=== PATIENT | female | born 1965 | race American Indian/Alaskan Native ===

== ENCOUNTER 2017-02-05 06:21 | Emergency (ER) | payer OTHER ==
[2017-02-05] MEDS ORDERED: Bacitracin 500 Units/gm Oint Foilpak UD TOP STA (07:32)
[2017-02-05] MEDS ORDERED: Bacitracin 500 Units/gm Oint Foilpak UD ONE (07:54)
--- NOTE | 2017-02-05 08:11 | RAD ---
PROCEDURE: Bilateral Knee Radiographs. HISTORY: fall COMPARISON: None. FINDINGS: BONES: Right Knee: No fracture Left Knee: No fracture JOINTS: Right Knee: Trace osteoarthritis. Left knee: Trace osteoarthritis. SOFT TISSUES: Right Knee: Normal. Left Knee: Normal. JOINT EFFUSION: Right Knee: None. Left Knee: None. OTHER FINDINGS: Bilateral quadriceps insertional enthesophytes IMPRESSION: Trace early degenerative changes. Bilateral quadriceps insertional enthesophytes.
--- NOTE | 2017-02-05 08:18 | C.PDOC ---
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 Patient complains of pain to both knees and a deep abrasion to the left knee. Reports tetanus is UTD. Denies head injury, LOC, chest pain, SOB, back pain, weakness or numbness. 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 utd for TD. exam: tender b/l knees, left knee with deep abrasion wound was cleaned and dressed with Bacitracin xray neg by radiologist d/c home with [facility] f/u Time Seen by Provider: 02/05/17 07:21 Chief Complaint (Nursing): Abnormal Skin Integrity History Per: Patient History/Exam Limitations: no limitations Onset/Duration Of Symptoms: Sudden Onset (SOFTWARE TESTER) Past Medical History Reviewed: Historical Data, Nursing Documentation, Vital Signs Vital Signs: Last Vital Signs Temp 97.9 F 02/05/17 08:35 Pulse 60 02/05/17 08:35 Resp 17 02/05/17 08:35 BP 147/93 H 02/05/17 08:35 Pulse Ox 99 02/05/17 08:37 - Medical History PMH: HTN Surgical History: Family History: States: No Known Family Hx - Social History Hx Tobacco Use: Yes (heavy smoker) Hx Alcohol Use: Yes Hx Substance Use: No - Immunization History Hx Tetanus Toxoid Vaccination: Yes (2014) Hx Influenza Vaccination: Yes Hx Pneumococcal Vaccination: No Review Of Systems Except As Marked, All Systems Reviewed And Found Negative. Cardiovascular: Negative for: Chest Pain Respiratory: Negative for: Shortness of Breath Musculoskeletal: Positive for: Other ((+) Bilateral knee pain ). Negative for: Back Pain Skin: Positive for: Other ((+) Deep abrasion to the left knee.) Neurological: Negative for: Weakness, Numbness Physical Exam - Physical Exam Appears: Well, Non-toxic, No Acute Distress Skin: Warm, Dry, No Rash Head: Atraumatic, Normacephalic Neck: Normal, Normal ROM, Supple Chest: Symmetrical, No Tenderness Cardiovascular: Rhythm Regular, No Murmur Respiratory: Normal Breath Sounds, No Rales, No Rhonchi, No Wheezing Extremity: Normal ROM, Tenderness (Bilateral knees. ), No Calf Tenderness, Capillary Refill (<2), Other ((+) Left knee with deep abrasion. ) Neurological/Psych: Oriented x3, Normal Speech, Normal Motor ED Course And Treatment O2 Sat by Pulse Oximetry: 99 - Other Rad X-Ray - Bilateral Knees X-Ray: Viewed By Me, Read By Radiologist Interpretation: PROCEDURE: Bilateral Knee Radiographs. HISTORY: fall. COMPARISON: None. FINDINGS: BONES: Right Knee: No fracture. Left Knee: No fracture. JOINTS: Right Knee: Trace osteoarthritis. Left knee: Trace osteoarthritis. SOFT TISSUES: Right Knee: Normal. Left Knee: Normal. JOINT EFFUSION: Right Knee: None. Left Knee: None. OTHER FINDINGS: Bilateral quadriceps insertional enthesophytes. IMPRESSION: Trace early degenerative changes. Bilateral quadriceps insertional enthesophytes. Medical Decision Making Medical Decision Making: PLAN: * X-Ray - Bilateral Knees NOTE: * Wound was cleaned and dressed with Bacitracin. * XRay report is negative. * Patient is discharged home with ortho follow up. Disposition - Disposition Referrals: Chris Rehman III, MD [Staff Provider] - Disposition: HOME/ ROUTINE Disposition Time: 08:16 Condition: STABLE Additional Instructions: Follow up with PMD and Orthopedist within 1-2 days. Return to ED if feel worse. 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 - Scribe Statement The provider has reviewed the documentation as recorded by the Scribe Meeta Devlin All medical record entries made by the Genovevaiblola were at my direction and personally dictated by me. I have reviewed the chart and agree that the record accurately reflects my personal performance of the history, physical exam, medical decision making, and the department course for this patient. I have also personally directed, reviewed, and agree with the discharge instructions and disposition.
[2017-02-05 08:36] VITALS: BP 147/93; PULSE 60; RESP 17; TEMP 97.9
[2017-02-05 08:37] VITALS: O2SAT 99
== END 2017-02-05 08:39 | disposition home or self-care (01) ==
LOC: C.ER 06:21 → SUPCPDRO 06:21 → C.ER 08:39
DX: S80.212A Abrasion, left knee, initial encounter (principal); S80.01XA Contusion of right knee, initial encounter; W01.0XXA Fall on same level from slipping, tripping and stumbling without subsequent striking against object, initial encounter; Y93.02 Activity, running; Y92.410 Unspecified street and highway as the place of occurrence of the external cause